=== PATIENT | male | born 1970 | race Caucasian/White ===

== ENCOUNTER 2021-03-30 09:03 | Emergency (ER) | payer BC ==
[2021-03-30] MEDS ORDERED: Diphtheria,Pertussis(Acell),Tetanus Vaccine 0.5 ML Syringe IM ONE (10:08)
[2021-03-30] MEDS ORDERED: Bacitracin Oint 1 GM U/D Packet TOP ONE (10:08)
--- NOTE | 2021-03-30 10:16 | EDM.PDOC ---
ED HPI GENERAL MEDICAL PROBLEM - General Chief Complaint: Laceration Stated Complaint: FISHHOOK RT HAND Time Seen by Provider: 03/30/21 09:55 Source of Information: Reports: Patient History Limitations: Reports: No Limitations - History of Present Illness INITIAL COMMENTS - FREE TEXT/NARRATIVE: 50-year-old male who had a fishhook embedded into his right thenar area of the palm earlier this morning, it was removed by a family member and the bleeding is controlled, just slight pain but he is in for tetanus vaccination. No other complaint. Onset: Sudden Duration: Hour(s): (3 hours ago) Location: Reports: Upper Extremity, Right Associated Symptoms: Reports: No Other Symptoms - Related Data Allergies Allergy/AdvReac Type Severity Reaction Status Date / Time Penicillins Allergy Rash Verified 03/30/21 09:43 Home Meds: Home Meds buPROPion [Wellbutrin SR] 150 mg PO DAILY 03/30/21 [History] Past Medical History Other HEENT History: nasal Psychiatric History: Reports: Anxiety, Depression - Past Surgical History Other Musculoskeletal Surgeries/Procedures:: back surgery Social & Family History - Tobacco Use Tobacco Use Status *Q: Never Tobacco User - Caffeine Use Caffeine Use: Reports: None - Recreational Drug Use Recreational Drug Use: No ED ROS GENERAL - Review of Systems Review Of Systems: See Below Constitutional: Denies: Fever, Chills, Malaise Respiratory: Reports: No Symptoms Cardiovascular: Reports: No Symptoms GI/Abdominal: Reports: No Symptoms Skin: Reports: Other (2 tiny puncture wounds in the thenar area of the right hand) ED EXAM, SKIN/RASH Exam: See Below Exam Limited By: No Limitations General Appearance: Alert, No Apparent Distress Head: Atraumatic Respiratory/Chest: No Respiratory Distress Extremities: Other (2 tiny puncture wounds are present in the thenar area of the right hand, no erythema, swelling or active bleeding) Neurological: Alert, Oriented Psychiatric: Normal Affect, Normal Mood Course - Vital Signs Last Recorded V/S: Last Vital Signs Temp 97.5 F 03/30/21 09:46 Pulse 47 L 03/30/21 09:46 Resp 16 03/30/21 09:46 BP 154/90 H 03/30/21 09:46 Pulse Ox 100 03/30/21 09:46 - Orders/Labs/Meds Meds: Medications Discontinued Medications Generic Name Dose Route Start Last Admin Trade Name Freq PRN Reason Stop Dose Admin Bacitracin 1 dose 03/30/21 10:08 03/30/21 10:12 Bacitracin Oint 1 Gm U/D Packet TOP 03/30/21 10:09 1 dose ONETIME ONE Administration Diphtheria/Tetanus/Acell Pertussis 0.5 ml 03/30/21 10:08 03/30/21 10:12 Diphtheria,Pertussis(Acell),Tetanus Vaccine 0.5 Ml Syringe IM 03/30/21 10:09 0.5 ml .ONCE ONE Administration - Re-Assessments/Exams Free Text/Narrative Re-Assessment/Exam: 03/30/21 10:15 Topical bacitracin was applied along with a Band-Aid, patient was given a Tdap booster and was sent on his way. He can return if there is problems. Departure - Departure Time of Disposition: 10:23 Disposition: Home, Self-Care 01 Clinical Impression: Puncture wound of right hand Qualifiers: Encounter type: initial encounter Foreign body presence: without foreign body Qualified Code(s): S61.431A - Puncture wound without foreign body of right hand, initial encounter - Discharge Information Instructions: Puncture Wound Referrals: PCP,None [Primary Care Provider] - Forms: ED Department Discharge Care Plan Goals: Keep area covered and clean while healing, increase activity as tolerated and return if concerns of infection or not healing satisfactorily. Sepsis Event Note (ED) - Evaluation Sepsis Screening Result: No Definite Risk - Focused Exam Vital Signs: Vital Signs Temp Pulse Resp BP Pulse Ox 03/30/21 09:46 97.5 F 47 L 16 154/90 H 100 03/30/21 09:43 97.5 F 47 L 16 154/90 H 100
== END 2021-03-30 10:23 | disposition home or self-care (01) ==
LOC: JP.ED 09:03
DX: S61.431A Puncture wound without foreign body of right hand, initial encounter (principal); Z23 Encounter for immunization; Z88.0 Allergy status to penicillin; W26.8XXA Contact with other sharp object(s), not elsewhere classified, initial encounter
CPT/HCPCS: 90471; 90715; 99283